=== PATIENT | female | born 2005 ===

== ENCOUNTER 2025-07-29 12:06 | Outpatient (REF) | payer OTHER, SELFPAY ==
[2025-08-01 09:08] LABS: Age Gdln ACOG Testing Note (.); IGP, rfx Aptima HPV ASCU Note (.)
== END 2025-07-29 12:07 | disposition home or self-care (01) ==
LOC: LAB 12:06
PROVIDERS: Visit Provider Obstetrics & Gynecology
DX: Z01.419 Encounter for gynecological examination (general) (routine) without abnormal findings (principal)
CPT/HCPCS: 88175